=== PATIENT | male | born 1955 | race Caucasian/White ===

== ENCOUNTER 2023-01-08 12:21 | Day surgery (SDC) | payer OTHER, SELFPAY ==
[2023-01-08 12:58] VITALS: BP 131/71; PULSE 69; RESP 21; TEMP 36.1; O2SAT 99; BMI 30.9
[2023-01-08] MEDS: LACTATED RINGERS 1,000 ML 100 ML IV (13:15)
--- NOTE | 2023-01-08 13:45 | PM.HP.1 ---
History of Present Illness History of Present Illness Date Patient Seen: 01/08/23 Time Patient Seen: 13:45 Chief complaint: Colonoscopy Narrative: Family history of colon cancer. Personal history of colon polyps in his 40s PFSH Medical History HTN (hypertension) Osteoarthritis Surgical History H/O laminectomy History of appendectomy Social History household members: spouse Smoking Status: Former smoker alcohol intake: current Meds Home Medications and Allergies Home Medications Medication Instructions Recorded Confirmed Type Crestor 10 mg PO 3XD 01/08/23 01/08/23 History hydrochlorothiazide 25 mg PO ONCE HS 01/08/23 01/08/23 History lisinopril 20 mg PO DAILY 01/08/23 01/08/23 History Allergies Allergy/AdvReac Type Severity Reaction Status Date / Time No Known Allergies Allergy Verified 01/08/23 12:57 No Known Drug Intolerances Allergy Verified 01/08/23 12:57 Review of Systems Review of Systems ROS: Yes All systems reviewed with the patient and are negative except as otherwise documented Exam Vital Signs (past 8 hours): - 01/08/23 12:58 Temperature 97 F L Pulse Rate 69 Respiratory Rate 21 Blood Pressure 131/71 Pulse Oximetry 99 Oxygen Delivery Method Room Air Oxygen Delivery Method Room Air Const General: cooperative HENMT Head: normal to inspection Eyes General: appearance normal, both eyes and all related structures Neck Neck: normal visual inspection Chest Chest: normal inspection of the chest Resp Effort & Inspection: normal respiratory effort Cardio Rate: regular rate GI Inspection: normal to inspection Skin General: no rashes or lesions noted Neuro General: patient alert and patient awake Extrem General: normal to inspection and no pedal edema Psych Appearance: grossly normal Assessment & Plan Assessment & Plan narrative: 67-year-old male with a family history of colon cancer. Colonoscopy is pursued today.
--- NOTE | 2023-01-08 13:46 | PM.PREOP ---
Pre-operative Note Interval Note History & Physical reviewed/Exam performed by Physician: Yes Changes to H&P: No ASA Class (for procedural sedation): II
--- NOTE | 2023-01-08 14:46 | PM.OP.COLON ---
Operative Date/Time/Diagnoses Date of procedure: 01/08/23 Time of procedure: 14:46 Pre-op diagnosis: Family history of colon cancer Post-op diagnosis: same Procedure & Clinicians Study performed: Colonoscopy Same procedure as scheduled: Yes Indications: Family history of colon cancer Surgeon: Geovani Hermosillo Procedure Notes SCOAP/Timeout: Done Procedure in detail: After the risks and benefits were explained, written and verbal informed consent was obtained. The patient was brought into the procedure room and placed into the left lateral decubitus position. Please see anesthesia notes for sedation details. Digital rectal examination was accomplished. The scope was introduced into the patient and advanced under direct visualization to the cecum as identified by the appendiceal orifice and ileocecal valve. The scope was slowly withdrawn to carefully examine the mucosa for any defects or lesions. Comprehensive imaging was accomplished throughout the rectum including the dentate line. The colon was decompressed, the scope was then removed from the patient who tolerated the procedure well. Pediatric colonoscope Bowel prep adequate Scope withdrawal time: 9 minutes Sedation minutes: 13 Specimen(s): none sent Complications: none Impression: There were some scattered diverticula in the left colon. There were several scattered diminutive hyperplastic appearing polyps that were left alone in the rectosigmoid region. No significant mucosal pathology was appreciated throughout colon. Grade 2 internal hemorrhoids were noted. Endoscopic diagnosis 1. Grade 2 hemorrhoids 2. Diverticulosis 3. Scattered diminutive hyperplastic appearing polyps Post-procedure Plan for aftercare: Repeat colonoscopy 5 years considering family history. Disposition: PACU
[2023-01-08 14:49] VITALS: BP 108/71; PULSE 64; RESP 16; TEMP 36.6; O2SAT 95
[2023-01-08 15:00] VITALS: BP 120/83; PULSE 65; RESP 20; O2SAT 100
[2023-01-08 15:03] VITALS: BP 110/77; PULSE 67; RESP 12; O2SAT 98
[2023-01-08 15:04] VITALS: BP 110/77; PULSE 58; RESP 16; O2SAT 99
== END 2023-01-08 15:20 | disposition home or self-care (01) ==
PROVIDERS: PCP Nurse Practitioner; Referring Provider Internal Medicine Gastroenterology; Visit Provider Internal Medicine Gastroenterology
PROC: 0DJD8ZZ Inspection of Lower Intestinal Tract, Via Natural or Artificial Opening Endoscopic (ICD-10-PCS; CPT 45378; principal; 2023-01-08 13:30)
DX: Z12.11 Encounter for screening for malignant neoplasm of colon (principal); Z80.0 Family history of malignant neoplasm of digestive organs; K64.1 Second degree hemorrhoids; K57.30 Diverticulosis of large intestine without perforation or abscess without bleeding; K63.5 Polyp of colon
CPT/HCPCS: 45378; J2704